=== PATIENT | male | born 1940 | race Caucasian/White ===

== ENCOUNTER 2018-10-19 08:54 | Outpatient (CLI) | payer MEDICARE, BC ==
--- NOTE | 2018-10-19 09:48 | MMO ---
Bilateral MAMMO Bilat Diag [facility]. CLINICAL HISTORY: Patient is 78 years old and is seen for diagnostic exam and lump or thickening in the left breast. The patient has no family history of breast cancer. The patient has no personal history of cancer. VIEWS: The views performed were: bilateral craniocaudal with tomosynthesis; bilateral mediolateral oblique with tomosynthesis; and bilateral mediolateral with tomosynthesis. MAMMOGRAM FINDINGS: There is bilateral, left greater than right, prolific breast tissue which is consistent with gynecomastia. There are no suspicious masses, suspicious calcifications, or new areas of architectural distortion. IMPRESSION: THERE IS NO MAMMOGRAPHIC EVIDENCE OF MALIGNANCY. CORRELATE FOR POSSIBLE ETIOLOGIES OF GYNECOMASTIA. THE RESULTS OF THIS EXAM WERE SENT TO THE PATIENT. ACR BI-RADS Category 2 - Benign finding MAMMOGRAPHY NOTE: 1. A negative mammogram report should not delay a biopsy if a dominant of clinically suspicious mass is present. 2. Approximately 10% to 15% of breast cancers are not detected by mammography. 3. Adenosis and dense breasts may obscure an underlying neoplasm. Reported by: GIOVANNA IRVING MD Electonically Signed: [id number]
== END 2018-10-19 08:55 | disposition home or self-care (01) ==
LOC: BICMAMMO 08:54
PROVIDERS: ATTEND Family Medicine
DX: N62 Hypertrophy of breast (principal)
CPT/HCPCS: 77066; G0279

== ENCOUNTER 2022-05-08 01:04 | Inpatient (IN) | payer MEDICARE, BC ==
[2022-05-08 01:46] LABS: #Eosinphils 0.2 thou/uL (0.0-0.7); #Lymphocytes 0.4 thou/uL (1.20-3.40); #Monocytes 0.7 thou/uL (0.11-0.59); #Neutrophils 17.4 thou/uL (1.40-6.50); %Basophils 0.1 % (0.0-1.0); %Eosinophils 0.9 % (0.0-10.0); %Lymphocytes 2.3 % (21.0-51.0); %Monocytes 3.8 % (0.0-10.0); %Neutrophils 92.9 % (42.0-75.0); Hemoglobin 13.5 g/dL (14.0-18.0); Mean Corpuscular HGB CONC 31.6 g/dL (32.0-36.0); Mean Corpuscular Hemoglobin 30.2 pg (27.0-31.0); Mean Corpuscular Volume 95.6 fl (78.0-98.0); Platelet Count 254 10x3/uL (130-400); RBC Distribution Width 13.1 % (11.5-14.5); Red Blood Cell (RBC) Count 4.46 mill/uL (4.70-6.10); White Blood Cell (WBC) Count 18.7 10x3/uL (4.8-10.8)
[2022-05-08 01:52] LABS: Actual Bicarbonate (HCO3a) 15.3 mEq/L (22-28); Analyzer IN Cardio ER; Base Excess (BEa) -9.7 mEq/L (-2.0 to +3.0); Calcium, Ionized (arterial) 1.13 mmol/L (1.12-1.30); Carboxyhemoglobin (COHb) 0.2 gm% (0.0-3.0); Hemoglobin (Hb) 14.4 g/dL (14.0-18.0); O2 Tension (PaO2), arterial 276.3 mmHg (> 60.0); Potassium - ABG Lab 4.41 mmol/L (3.70-5.30); pH, Arterial 7.31 (7.35-7.45)
[2022-05-08 02:01] LABS: SARS-CoV-2 NAA Rapid Test Not Detected (NotDetected)
[2022-05-08 02:05] LABS: ALT (SGPT) 15 U/L (8-55); AST (SGOT) 16 U/L (5-34); Albumin 3.5 g/dL (3.4-4.8); Alkaline Phosphatase 37 U/L (40-110); Anion Gap 23 mmol/L (10-20); BUN (Urea Nitrogen) 22 mg/dL (8.4-25.7); Bilirubin, Total 0.9 mg/dL (0.2-1.2); Calc. Creatinine Clearance 0 mL/min (70-130); Calcium 8.7 mg/dL (7.8-10.44); Carbon Dioxide 17 mmol/L (23-31); Chloride 100 mmol/L (98-107); Estimated GFR 35; Globulin 2.7 g/dL (2.4-3.5); Glucose 180 mg/dL (83-110); Potassium 4.8 mmol/L (3.5-5.1); Protein, Total 6.2 g/dL (5.8-8.1); Sodium 135 mmol/L (136-145)
[2022-05-08 02:25] LABS: CKMB 3.4 ng/mL (0-6.6)
[2022-05-08] MEDS ORDERED: Dextrose 5% in Water 1,000 ML IV PRN (02:45)
[2022-05-08] MEDS ORDERED: Dextrose 50% Abboject 50 ML SYRINGE SLOW IVP PRN (02:45)
[2022-05-08] MEDS ORDERED: Ipratropium/Albuterol 3 ML NEB NEB PRN (02:51)
[2022-05-08 03:36] LABS: Puncture Site RRA
[2022-05-08 03:46] VITALS: BMI 25.3
[2022-05-08 03:58] LABS: Lactic Acid 1.6 mmol/L (0.5-2.2)
[2022-05-08] MEDS: Azithromycin 500 MG in Sodium Chloride 0.9% 250 ML 250 ML IVPB SCH (05:07)
[2022-05-08] MEDS ORDERED: Ondansetron PF 4 MG/2 ML Vial IVP PRN (06:25)
[2022-05-08] MEDS ORDERED: Acetaminophen 325 MG TAB PO PRN (06:25)
[2022-05-08] MEDS ORDERED: Ondansetron ODT 4 MG TAB PO PRN (06:25)
[2022-05-08] MEDS ORDERED: Acetaminophen 650 MG Suppository PR PRN (06:25)
[2022-05-08 07:07] LABS: #Eosinphils 0.1 thou/uL (0.0-0.7); #Lymphocytes 0.4 thou/uL (1.20-3.40); #Monocytes 0.1 thou/uL (0.11-0.59); #Neutrophils 11.4 thou/uL (1.40-6.50); %Basophils 0.1 % (0.0-1.0); %Eosinophils 0.7 % (0.0-10.0); %Lymphocytes 3.4 % (21.0-51.0); %Monocytes 1.1 % (0.0-10.0); %Neutrophils 94.8 % (42.0-75.0); Hemoglobin 13.2 g/dL (14.0-18.0); Mean Corpuscular HGB CONC 32.1 g/dL (32.0-36.0); Mean Corpuscular Hemoglobin 30.7 pg (27.0-31.0); Mean Corpuscular Volume 95.7 fl (78.0-98.0); Platelet Count 250 10x3/uL (130-400); Red Blood Cell (RBC) Count 4.29 mill/uL (4.70-6.10)
[2022-05-08] MEDS: Ipratropium/Albuterol 3 ML NEB NEB SCH ×4 (07:07→23:12)
[2022-05-08 07:30] LABS: Anion Gap 20 mmol/L (10-20); BUN (Urea Nitrogen) 24 mg/dL (8.4-25.7); Calc. Creatinine Clearance 39 mL/min (70-130); Calcium 8.4 mg/dL (7.8-10.44); Carbon Dioxide 16 mmol/L (23-31); Chloride 100 mmol/L (98-107); Estimated GFR 40; Glucose 223 mg/dL (83-110); Potassium 4.9 mmol/L (3.5-5.1); Sodium 131 mmol/L (136-145)
[2022-05-08] MEDS: Apixaban 5 MG TAB PO SCH ×2 (10:02→21:31)
[2022-05-08] MEDS: methylPREDNISolone Sod Succ 40 MG VIAL IVP SCH (10:02)
[2022-05-08] MEDS: Rosuvastatin 5 MG TAB PO SCH (10:02)
[2022-05-08] MEDS ORDERED: Sodium Chloride 0.9% 1,000 ML IV SCH (13:45)
[2022-05-08] MEDS: HumaLOG 300 UNITS/3 ML VIAL SC PRN ×2 (18:00→22:20)
[2022-05-08] MEDS: Mometasone 200 MCG/Formoterol 5 MCG 120 PUFF INHALER INH SCH (18:35)
[2022-05-09 00:07] LABS: Bacteria/HPF 4+ HPF (None Seen); Bilirubin Negative (Negative); Blood, Urine 1+ (Negative); CAUTI Indications for Culture Dysuria,urgency,freq; Clarity Turbid (Clear); Glucose, Urine (Dipstick) Greater than 1000 mg/dL (Negative); Ketone, Urine 20 mg/dL (Negative); Leukocyte Negative Leu/uL (Negative); Nitrite Negative (Negative); Protein, Urine (Dipstick) Negative (Neg-Trace); Specific Gravity, Urine 1.012 (1.002-1.036); Squamous Epithelial 0-3 HPF (0-3); Urobilinogen Normal mg/dL (Less than 2)
[2022-05-09 00:10] LABS: Urine Culture Reflex No No
[2022-05-09 03:52] LABS: Actual Bicarbonate (HCO3v) 20 mEq/L (22-28); Base Excess -1.9 mEq/L (-2.0 to +3.0); Calcium, Ionized (venous) 1.11 mmol/L (1.16-1.32); Chloride (VBG) 102 mmol/L (98-106); Hemoglobin (Hb) 14.1 g/dL (12.6-17.4); Potassium (VBG) 4.24 mmol/L (3.70-5.30); Sodium 132.7 mmol/L (133-146); pH (venous) 7.49 (7.32-7.43)
[2022-05-09] MEDS: Azithromycin 500 MG in Sodium Chloride 0.9% 250 ML 250 ML IVPB SCH (04:37)
[2022-05-09] MEDS: HumaLOG 300 UNITS/3 ML VIAL SC PRN ×4 (05:40→22:12)
[2022-05-09] MEDS: Ipratropium/Albuterol 3 ML NEB NEB SCH ×3 (07:12→19:38)
[2022-05-09] MEDS: Mometasone 200 MCG/Formoterol 5 MCG 120 PUFF INHALER INH SCH ×2 (07:16→19:40)
[2022-05-09 08:06] LABS: #Lymphocytes 0.7 thou/uL (1.20-3.40); #Monocytes 0.9 thou/uL (0.11-0.59); #Neutrophils 17.3 thou/uL (1.40-6.50); %Eosinophils 0.1 % (0.0-10.0); %Lymphocytes 3.5 % (21.0-51.0); %Monocytes 4.7 % (0.0-10.0); %Neutrophils 91.7 % (42.0-75.0); Mean Corpuscular HGB CONC 32.7 g/dL (32.0-36.0); Mean Corpuscular Hemoglobin 30.2 pg (27.0-31.0); Mean Corpuscular Volume 92.5 fl (78.0-98.0); Mean Platelet Volume 7.1 fL (7.4-10.4); Platelet Count 286 10x3/uL (130-400); RBC Distribution Width 13.2 % (11.5-14.5); Red Blood Cell (RBC) Count 4.31 mill/uL (4.70-6.10); White Blood Cell (WBC) Count 18.8 10x3/uL (4.8-10.8)
[2022-05-09 08:26] LABS: Anion Gap 13 mmol/L (10-20); BUN (Urea Nitrogen) 27 mg/dL (8.4-25.7); Calc. Creatinine Clearance 52 mL/min (70-130); Calcium 9.1 mg/dL (7.8-10.44); Carbon Dioxide 19 mmol/L (23-31); Chloride 106 mmol/L (98-107); Estimated GFR 56; Glucose 208 mg/dL (83-110); Magnesium 2.3 mg/dL (1.6-2.6); Potassium 4.3 mmol/L (3.5-5.1); Sodium 134 mmol/L (136-145)
[2022-05-09] MEDS: methylPREDNISolone Sod Succ 40 MG VIAL IVP SCH (09:47)
[2022-05-09] MEDS: Apixaban 5 MG TAB PO SCH ×2 (09:47→22:13)
[2022-05-09] MEDS: Rosuvastatin 5 MG TAB PO SCH (09:47)
[2022-05-09] MEDS: Amlodipine 5 MG TAB PO SCH (09:47)
[2022-05-09] MEDS ORDERED: Calcium Carbonate 500 MG ChewTAB PO PRN (11:29)
[2022-05-09 13:55] VITALS: BP 137/86
[2022-05-09] MEDS ORDERED: Melatonin 3 MG TAB PO PRN (21:41)
[2022-05-10] MEDS: Ipratropium/Albuterol 3 ML NEB NEB SCH ×4 (00:50→18:28)
[2022-05-10] MEDS: Azithromycin 500 MG in Sodium Chloride 0.9% 250 ML 250 ML IVPB SCH (04:52)
[2022-05-10] MEDS: HumaLOG 300 UNITS/3 ML VIAL SC PRN ×3 (06:18→21:34)
[2022-05-10] MEDS: Mometasone 200 MCG/Formoterol 5 MCG 120 PUFF INHALER INH SCH ×2 (08:29→18:29)
[2022-05-10 09:16] LABS: #Lymphocytes 0.8 thou/uL (1.20-3.40); #Monocytes 0.9 thou/uL (0.11-0.59); #Neutrophils 15.4 thou/uL (1.40-6.50); %Basophils 0.1 % (0.0-1.0); %Eosinophils 0.2 % (0.0-10.0); %Lymphocytes 4.7 % (21.0-51.0); Hemoglobin 13.2 g/dL (14.0-18.0); Mean Corpuscular HGB CONC 33.3 g/dL (32.0-36.0); Mean Corpuscular Hemoglobin 31.1 pg (27.0-31.0); Mean Corpuscular Volume 93.2 fl (78.0-98.0); Mean Platelet Volume 6.9 fL (7.4-10.4); Platelet Count 298 10x3/uL (130-400); RBC Distribution Width 13.1 % (11.5-14.5); Red Blood Cell (RBC) Count 4.25 mill/uL (4.70-6.10); White Blood Cell (WBC) Count 17.1 10x3/uL (4.8-10.8)
[2022-05-10] MEDS: Apixaban 5 MG TAB PO SCH ×2 (09:36→21:39)
[2022-05-10] MEDS: methylPREDNISolone Sod Succ 40 MG VIAL IVP SCH (09:36)
[2022-05-10] MEDS: Amlodipine 5 MG TAB PO SCH (09:36)
[2022-05-10 09:38] LABS: Anion Gap 14 mmol/L (10-20); BUN (Urea Nitrogen) 23 mg/dL (8.4-25.7); Calc. Creatinine Clearance 50 mL/min (70-130); Calcium 9.4 mg/dL (7.8-10.44); Carbon Dioxide 22 mmol/L (23-31); Chloride 104 mmol/L (98-107); Estimated GFR 52; Glucose 220 mg/dL (83-110); Magnesium 2.2 mg/dL (1.6-2.6); Potassium 4.2 mmol/L (3.5-5.1); Sodium 136 mmol/L (136-145)
[2022-05-10] MEDS: Rosuvastatin 5 MG TAB PO SCH (09:40)
[2022-05-10] MEDS ORDERED: Metoprolol Tartrate 25 MG TAB PO SCH (15:30)
[2022-05-10] MEDS ORDERED: traZODone HCl 50 MG TAB PO PRN (20:28)
[2022-05-10] MEDS: Metoprolol Tartrate 25 MG TAB PO SCH (21:37)
[2022-05-11] MEDS: Ipratropium/Albuterol 3 ML NEB NEB SCH ×2 (01:07→07:16)
[2022-05-11 04:15] LABS: #Lymphocytes 0.8 thou/uL (1.20-3.40); #Monocytes 0.6 thou/uL (0.11-0.59); %Eosinophils 0.1 % (0.0-10.0); %Lymphocytes 5.2 % (21.0-51.0); %Monocytes 4.4 % (0.0-10.0); %Neutrophils 90.2 % (42.0-75.0); Hemoglobin 12.4 g/dL (14.0-18.0); Mean Corpuscular HGB CONC 33.3 g/dL (32.0-36.0); Mean Corpuscular Hemoglobin 30.9 pg (27.0-31.0); Mean Corpuscular Volume 92.6 fl (78.0-98.0); Mean Platelet Volume 7.3 fL (7.4-10.4); Platelet Count 276 10x3/uL (130-400); Red Blood Cell (RBC) Count 4.03 mill/uL (4.70-6.10); White Blood Cell (WBC) Count 14.4 10x3/uL (4.8-10.8)
[2022-05-11 04:34] LABS: Anion Gap 17 mmol/L (10-20); BUN (Urea Nitrogen) 27 mg/dL (8.4-25.7); Calc. Creatinine Clearance 49 mL/min (70-130); Calcium 9.2 mg/dL (7.8-10.44); Carbon Dioxide 18 mmol/L (23-31); Chloride 106 mmol/L (98-107); Estimated GFR 52; Glucose 183 mg/dL (83-110); Magnesium 2.2 mg/dL (1.6-2.6); Potassium 5.2 mmol/L (3.5-5.1); Sodium 136 mmol/L (136-145)
[2022-05-11] MEDS: Azithromycin 500 MG in Sodium Chloride 0.9% 250 ML 250 ML IVPB SCH (04:45)
[2022-05-11] MEDS: Mometasone 200 MCG/Formoterol 5 MCG 120 PUFF INHALER INH SCH (07:17)
[2022-05-11 07:48] VITALS: TEMP 96.8
[2022-05-11] MEDS ORDERED: Glimepiride 1 MG TAB PO SCH (08:00)
[2022-05-11] MEDS ORDERED: predniSONE 20 MG TAB PO SCH (08:00)
[2022-05-11] MEDS: Apixaban 5 MG TAB PO SCH (09:46)
[2022-05-11] MEDS: Rosuvastatin 5 MG TAB PO SCH (09:47)
[2022-05-11] MEDS: Metoprolol Tartrate 25 MG TAB PO SCH (09:47)
== END 2022-05-11 10:53 | disposition home or self-care (01) | DRG 189 ==
LOC: ERS 01:04 → IMCU/EMU 02:15
PROVIDERS: ADMIT Family Medicine; ATTEND Family Medicine
PROC: 5A09357 Assistance with Respiratory Ventilation, Less than 24 Consecutive Hours, Continuous Positive Airway Pressure (ICD-10-PCS; principal; 2022-05-08)
DX: J96.02 Acute respiratory failure with hypercapnia (principal); G93.41 Metabolic encephalopathy; N17.9 Acute kidney failure, unspecified; E87.20 Acidosis, unspecified; I48.92 Unspecified atrial flutter; Z20.822 Contact with and (suspected) exposure to COVID-19; J96.01 Acute respiratory failure with hypoxia; I48.91 Unspecified atrial fibrillation; I49.3 Ventricular premature depolarization; I45.10 Unspecified right bundle-branch block; N18.9 Chronic kidney disease, unspecified; E11.22 Type 2 diabetes mellitus with diabetic chronic kidney disease; I12.9 Hypertensive chronic kidney disease with stage 1 through stage 4 chronic kidney disease, or unspecified chronic kidney disease; I95.9 Hypotension, unspecified; D72.829 Elevated white blood cell count, unspecified; R77.8 Other specified abnormalities of plasma proteins; Z79.01 Long term (current) use of anticoagulants; Z79.84 Long term (current) use of oral hypoglycemic drugs
CPT/HCPCS: 36415; 36416; 36600; 71045; 80048; 80053; 81001; 82010; 82553; 82805; 83605; 83735; 84484; 85025; 87040; 93005; 93010; 94640; 94660; 96360; J0456; J1815; J2920; J7050; J7512; J7620; Q0162; U0002

== ENCOUNTER 2022-07-11 08:38 | Outpatient (CLI) | payer MEDICARE, BC | END 2022-07-11 08:39 | disposition home or self-care (01) | LOC: RAD 08:38 | PROVIDERS: ATTEND Internal Medicine | DX: R06.00 Dyspnea, unspecified (principal) | CPT/HCPCS: 71046 ==

== ENCOUNTER 2023-04-09 17:54 | Inpatient (IN) | payer MEDICARE, BC ==
[2023-04-09 20:05] VITALS: BMI 25.8
[2023-04-09] MEDS ORDERED: Dextrose 50% Abboject 50 ML SYRINGE SLOW IVP PRN (20:29)
[2023-04-09] MEDS ORDERED: Ipratropium/Albuterol 3 ML NEB NEB PRN (20:29)
[2023-04-09] MEDS ORDERED: Ondansetron PF 4 MG/2 ML Vial IVP PRN (20:29)
[2023-04-09] MEDS ORDERED: Glucagon 1 MG/ML KIT IM PRN (20:29)
[2023-04-09] MEDS ORDERED: Dextrose 5% in Water 1,000 ML IV PRN (20:29)
[2023-04-09] MEDS ORDERED: Ondansetron ODT 4 MG TAB PO PRN (20:29)
[2023-04-09] MEDS ORDERED: hydrALAZINE 20 MG/ML VIAL SLOW IVP PRN (20:39)
[2023-04-09] MEDS ORDERED: Famotidine/PF 20 mg/2ml Vial SLOW IVP SCH (21:00)
[2023-04-09 21:15] LABS: Anion Gap 15 mmol/L (10-20); BUN (Urea Nitrogen) 22 mg/dL (8.4-25.7); Calc. Creatinine Clearance 44 mL/min (70-130); Calcium 8.7 mg/dL (7.8-10.44); Carbon Dioxide 23 mmol/L (23-31); Chloride 102 mmol/L (98-107); Estimated GFR 47; Glucose 114 mg/dL (83-110); Potassium 3.9 mmol/L (3.5-5.1); Sodium 136 mmol/L (136-145)
[2023-04-09] MEDS: Acetaminophen 500 MG TAB PO SCH (22:00)
[2023-04-09] MEDS: Senokot S 8.6-50 MG TAB PO SCH (22:00)
[2023-04-09] MEDS: Morphine 2 MG/ML VIAL SLOW IVP PRN (22:00)
[2023-04-09] MEDS: Cyclobenzaprine 10 MG TAB PO PRN (22:01)
[2023-04-09] MEDS: Metoprolol Tartrate 25 MG TAB PO SCH (22:01)
[2023-04-09] MEDS: Sodium Chloride 0.9% 1,000 ML IV SCH (23:08)
[2023-04-09] MEDS ORDERED: Ketorolac Tromethamine 30 MG (1 mL) VIAL IVP SCH (23:59)
[2023-04-10 05:08] LABS: #Basophils 0.1 thou/uL (0.0-0.2); #Monocytes 0.6 thou/uL (0.11-0.59); #Neutrophils 7.6 thou/uL (1.40-6.50); %Basophils 0.6 % (0.0-1.0); %Eosinophils 9.4 % (0.0-10.0); %Lymphocytes 13.9 % (21.0-51.0); %Monocytes 5.4 % (0.0-10.0); Hematocrit 42.1 % (42.0-52.0); Hemoglobin 13.8 g/dL (14.0-18.0); Mean Corpuscular HGB CONC 32.8 g/dL (32.0-36.0); Mean Corpuscular Hemoglobin 30.5 pg (27.0-31.0); Mean Corpuscular Volume 92.9 fl (78.0-98.0); Mean Platelet Volume 9.5 fL (7.4-10.4); Platelet Count 170 10x3/uL (130-400); RBC Distribution Width 14.5 % (11.5-14.5); Red Blood Cell (RBC) Count 4.53 mill/uL (4.70-6.10); White Blood Cell (WBC) Count 10.9 10x3/uL (4.8-10.8)
[2023-04-10 05:21] LABS: INR-International Normal Ratio 1.2; Prothrombin Time 14.9 sec (12.0-14.7)
[2023-04-10 05:22] LABS: PTT 38.2 sec (22.9-36.1)
[2023-04-10 05:35] LABS: Anion Gap 10 mmol/L (10-20); BUN (Urea Nitrogen) 21 mg/dL (8.4-25.7); Calc. Creatinine Clearance 43 mL/min (70-130); Calcium 8.5 mg/dL (7.8-10.44); Carbon Dioxide 27 mmol/L (23-31); Chloride 103 mmol/L (98-107); Estimated GFR 46; Glucose 120 mg/dL (83-110); Sodium 136 mmol/L (136-145)
[2023-04-10] MEDS: Pantoprazole 40 MG VIAL IVP SCH (07:47)
[2023-04-10] MEDS: predniSONE 5 MG TAB PO SCH (07:47)
[2023-04-10] MEDS: dilTIAZem CD 120 MG CAP PO SCH (07:47)
[2023-04-10] MEDS: Rosuvastatin 5 MG TAB PO SCH (07:47)
[2023-04-10] MEDS: Polyethylene Glycol 3350 17 GM Packet PO SCH (07:47)
[2023-04-10] MEDS ORDERED: predniSONE 20 MG TAB PO SCH (08:00)
[2023-04-10] MEDS ORDERED: CEFAZOLIN 2 GM in Sodium Chloride 0.9% 100 ML IVPB SCH (08:00)
[2023-04-10] MEDS ORDERED: Ipratropium/Albuterol 3 ML NEB ONE (08:16)
[2023-04-10] MEDS ORDERED: CEFAZOLIN 2 GM VIAL ONE (08:45)
[2023-04-10] MEDS ORDERED: Sodium Chloride 0.9% 100 ML ONE (08:45)
[2023-04-10] MEDS ORDERED: Lidocaine 1% PF 5 ML VIAL ONE (08:47)
[2023-04-10] MEDS ORDERED: PROPOFOL 20 ML ONE (08:47)
[2023-04-10] MEDS ORDERED: Ondansetron PF 4 MG/2 ML Vial ONE (08:47)
[2023-04-10] MEDS ORDERED: fentaNYL PF 100 MCG/2 ML SYRINGE ONE (08:48)
[2023-04-10] MEDS ORDERED: Empagliflozin 10 MG TAB PO SCH (09:00)
[2023-04-10] MEDS: CEFAZOLIN 2 GM in Sodium Chloride 0.9% 100 ML IVPB SCH (13:56)
[2023-04-10] MEDS: Sodium Chloride 0.9% 1,000 ML IV SCH (15:15)
[2023-04-10] MEDS: HumaLOG 300 UNITS/3 ML VIAL SC PRN (17:10)
[2023-04-10] MEDS: guaiFENesin ER 600 MG TAB PO SCH (21:15)
[2023-04-11 05:18] LABS: #Basophils 0.1 thou/uL (0.0-0.2); #Eosinphils 0.6 thou/uL (0.0-0.7); #Monocytes 0.9 thou/uL (0.11-0.59); #Neutrophils 8.9 thou/uL (1.40-6.50); %Basophils 0.5 % (0.0-1.0); %Eosinophils 4.8 % (0.0-10.0); %Lymphocytes 13.8 % (21.0-51.0); %Neutrophils 72.9 % (42.0-75.0); Hematocrit 39.1 % (42.0-52.0); Hemoglobin 12.7 g/dL (14.0-18.0); Mean Corpuscular HGB CONC 32.5 g/dL (32.0-36.0); Mean Corpuscular Hemoglobin 29.7 pg (27.0-31.0); Mean Corpuscular Volume 91.6 fl (78.0-98.0); Mean Platelet Volume 9.5 fL (7.4-10.4); Platelet Count 173 10x3/uL (130-400); RBC Distribution Width 14.4 % (11.5-14.5); Red Blood Cell (RBC) Count 4.27 mill/uL (4.70-6.10); White Blood Cell (WBC) Count 12.2 10x3/uL (4.8-10.8)
[2023-04-11 05:48] LABS: Anion Gap 12 mmol/L (10-20); BUN (Urea Nitrogen) 17 mg/dL (8.4-25.7); Calc. Creatinine Clearance 47 mL/min (70-130); Calcium 8.3 mg/dL (7.8-10.44); Carbon Dioxide 22 mmol/L (23-31); Chloride 105 mmol/L (98-107); Estimated GFR 50; Glucose 148 mg/dL (83-110); Potassium 4.1 mmol/L (3.5-5.1); Sodium 135 mmol/L (136-145)
[2023-04-12] MEDS: Lactulose 20 GM (30 mL) UDCUP PO SCH (14:55)
[2023-04-12] MEDS: Senokot S 8.6-50 MG TAB PO SCH (20:58)
[2023-04-12] MEDS: Apixaban 5 MG TAB PO SCH (20:59)
[2023-04-13 05:25] LABS: Hematocrit 34.2 % (42.0-52.0); Hemoglobin 11.1 g/dL (14.0-18.0)
[2023-04-13] MEDS: Polyethylene Glycol 3350 17 GM Packet PO SCH (08:55)
[2023-04-13] MEDS: traMADol HCl 50 MG TAB PO SCH (11:05)
[2023-04-14] MEDS ORDERED: Acetaminophen/Codeine 30-300mg Tablet PO PRN (09:04)
[2023-04-14 13:05] VITALS: TEMP 97.9
[2023-04-14 16:01] VITALS: BP 129/75
== END 2023-04-14 18:10 | disposition swing bed (61) | DRG 522 ==
LOC: SURG B 17:54
PROVIDERS: ADMIT Student in an Organized Health Care Education/Training Program; ATTEND Student in an Organized Health Care Education/Training Program
PROC: 0SRR0JA Replacement of Right Hip Joint, Femoral Surface with Synthetic Substitute, Uncemented, Open Approach (ICD-10-PCS; principal; 2023-04-10)
DX: S72.001A Fracture of unspecified part of neck of right femur, initial encounter for closed fracture (principal); D62 Acute posthemorrhagic anemia; I12.9 Hypertensive chronic kidney disease with stage 1 through stage 4 chronic kidney disease, or unspecified chronic kidney disease; E11.22 Type 2 diabetes mellitus with diabetic chronic kidney disease; N18.9 Chronic kidney disease, unspecified; J44.9 Chronic obstructive pulmonary disease, unspecified; W19.XXXA Unspecified fall, initial encounter; I48.91 Unspecified atrial fibrillation; F10.90 Alcohol use, unspecified, uncomplicated; G47.33 Obstructive sleep apnea (adult) (pediatric); Z98.890 Other specified postprocedural states
CPT/HCPCS: 36415; 36416; 71045; 72170; 80048; 85014; 85018; 85025; 85610; 85730; 93005; 93010; C1713; C1776; C9113; J1815; J2272; J2405; J2704; J3490; J7050; J7512; J7620